=== PATIENT | male | born 1995 | race Caucasian/White ===

== ENCOUNTER 2021-03-16 09:14 | Emergency (ER) | payer OTHER ==
[~2021-03-16] VITALS: Ht 180.3 cm; Wt 120.4 kg
[2021-03-16] MEDS ORDERED: LIDOCAINE 1% INJ 20 ML 20 ML VIAL INJ STA (09:22)
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
[2021-03-16] MEDS ORDERED: TETANUS,DIPTH,PERTUSS P/F (BOOSTRIX) 0.5 ML VIAL IM ONE (09:30)
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
[2021-03-16] MEDS ORDERED: AMOX1TAB12 PO (10:52)
[2021-03-16] MEDS ORDERED: IBUP-1780 PO (10:52)
[2021-03-16] MEDS ORDERED: ACHD5005 PO (10:52)
[2021-03-16 11:16] VITALS: BP 151/95
== END 2021-03-16 11:15 | disposition home or self-care (01) ==
LOC: ER FS 09:17
DX: S62.633A Displaced fracture of distal phalanx of left middle finger, initial encounter for closed fracture (principal); S61.221A Laceration with foreign body of left index finger without damage to nail, initial encounter; S69.92XA Unspecified injury of left wrist, hand and finger(s), initial encounter; Z23 Encounter for immunization; W26.8XXA Contact with other sharp object(s), not elsewhere classified, initial encounter
CPT/HCPCS: 64450; 73130; 99284; A6223; 90715

== ENCOUNTER 2021-11-22 07:52 | Emergency (ER) | payer OTHER, BC ==
[~2021-11-22] VITALS: Ht 180.3 cm; Wt 113.4 kg
[~2021-11-22 07:52] MED LIST: ACHD5005 PO; AMOX1TAB12 PO; IBUP-1780 PO
[2021-11-22] MEDS ORDERED: CYCL10TA25 PO (08:45)
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
[2021-11-22 09:04] VITALS: BP 139/72
== END 2021-11-22 09:04 | disposition home or self-care (01) ==
LOC: EDUNIT# 07:52 → ER FS 07:54
DX: S13.4XXA Sprain of ligaments of cervical spine, initial encounter (principal); S33.9XXA Sprain of unspecified parts of lumbar spine and pelvis, initial encounter; S43.402A Unspecified sprain of left shoulder joint, initial encounter; V29.9XXA Motorcycle rider (driver) (passenger) injured in unspecified traffic accident, initial encounter
CPT/HCPCS: 72040; 72100; 73030